=== PATIENT | male | born 1995 | race Caucasian/White ===

== ENCOUNTER 2021-11-15 13:52 | Emergency (ER) | payer BC ==
[2021-11-15 14:55] LABS: Absolute Lymphocytes (CBC) 1.7 K/uL (0.7-4.9); Hematocrit 42.5 % (39.6-49.0); Lymphocytes % 18.5 % (15.3-44.8); MCV 79.4 fL (80-100); MPV 6.9 fL (7.6-11.3); RBC Red Blood Cell Count 5.36 M/uL (4.33-5.43)
[2021-11-15 15:07] LABS: Potassium 3.5 mmol/L (3.5-5.1)
--- NOTE | 2021-11-15 15:18 | RAD REPORT ---
EXAM DESCRIPTION: US - Extrem Venous W Compress Emeterio - 11/15/2021 2:55 pm CLINICAL HISTORY: SWELLINGin both legs COMPARISON: None. TECHNIQUE: Real-time sonographic evaluation of the bilateral lower extremity common femoral, superfi cial femoral, popliteal and posterior tibial veins was performed. FINDINGS: Normal compressibility, flow augmentation, phasic flow and spontaneous flow are identified in the left and right lower extremity common femoral, superficial femoral, popliteal and posterior t ibial veins. No intraluminal filling defects seen. IMPRESSION: No DVT in either lower extremity.
--- NOTE | 2021-11-15 15:37 | EDPHYS ---
Physician Documentation [facility] Name: Burke Dolan Age: 26 yrs Sex: Male : 1995 Arrival Date: 11/15/2021 Time: 13:53 Bed 13 Private MD: ED Physician Yrn Pickens HPI: 11/15 20:32 This 26 yrs old Male presents to ER via Ambulatory with complaints of Ankle Swelling. kb 23:29 The patient presents with a rash, swelling. The complaints affect the left foot, right kb foot. Context: the patient can fully bear weight, the patient is able to ambulate. Onset: The symptoms/episode began/occurred 2 week(s) ago, and became worse yesterday. Modifying factors: The symptoms are alleviated by nothing, the symptoms are aggravated by nothing. Associated signs and symptoms: Pertinent positives: rash, swelling, Pertinent negatives: calf tenderness, fever, nausea, numbness, tingling, vomiting, warmth, weakness. Severity of symptoms: At their worst the symptoms were moderate, in the emergency department the symptoms are unchanged. The patient has not experienced similar symptoms in the past. The patient has not recently seen a physician. Pt reports crusty rash that started 2 weeks ago to hands and feet. States the hands cleared up, but it persists on both feet. Yesterday feet began to swell with redness. Denies fever. States he wears boots at work for 12 hours a day. Historical: - Allergies: 14:02 PENICILLINS; hb - Immunization history:: Adult Immunizations up to date. - Social history:: Smoking status: Patient denies any tobacco usage or history of. ROS: 20:32 Constitutional: Negative for fever, chills, and weight loss. kb 23:31 Skin: Positive for erythema, rash, swelling, of the left foot and right foot. kb 23:31 All other systems are negative. Exam: 23:31 Constitutional: This is a well developed, well nourished patient who is awake, alert, kb and in no acute distress. Head/Face: Normocephalic, atraumatic. ENT: Moist Mucous membranes Cardiovascular: Regular rate and rhythm with a normal S1 and S2. No gallops, murmurs, or rubs. No pulse deficits. Respiratory: Respirations even and unlabored. No increased work of breathing. Talking in full sentences MS/ Extremity: Pulses equal, no cyanosis. Neurovascular intact. Full, normal range of motion. Neuro: Awake and alert, GCS 15, oriented to person, place, time, and situation. Moves all extremities. Normal gait. Psych: Awake, alert, with orientation to person, place and time. Behavior, mood, and affect are within normal limits. 23:31 Skin: cellulitis, that is mild, on the right foot and left foot, rash a moderate rash is noted, consistent with tinea pedis, on the left foot and right foot. Vital Signs: 13:59 BP 140 / 103; Pulse 86; Resp 18; Temp 98.5(O); Pulse Ox 99% on R/A; Pain 3/10; hb 15:00 BP 130 / 74; Pulse 75; Resp 16; Pulse Ox 100% ; bp 16:15 BP 101 / 72; Pulse 89; Resp 16; Pulse Ox 100% ; bp MDM: 13:59 Patient medically screened. kb 20:32 Data reviewed: vital signs, nurses notes. Data interpreted: Pulse oximetry: on room air kb is 100 %. Interpretation: normal. Counseling: I had a detailed discussion with the patient and/or guardian regarding: the historical points, exam findings, and any diagnostic results supporting the discharge/admit diagnosis, lab results, radiology results, the need for outpatient follow up, a family practitioner, to return to the emergency department if symptoms worsen or persist or if there are any questions or concerns that arise at home. 11/15 14:02 Order name: CBC with Diff; Complete Time: 15:00 kb 11/15 14:03 Order name: Basic Metabolic Panel; Complete Time: 15:10 kb 11/15 14:03 Order name: US Extremity Venous W Compression Emeterio; Complete Time: 15:20 kb 11/15 14:03 Order name: Blood Culture Adult (2) kb 11/15 14:03 Order name: Lactate; Complete Time: 15:14 kb 11/15 14:03 Order name: IV Start; Complete Time: 14:30 kb Administered Medications: 16:00 Drug: Bactrim (trimethoprim-sulfamethoxazole) (160 mg-800 mg (DS) 1 tablet Route: PO; bp 16:31 Follow up: Response: No adverse reaction bp Disposition Summary: 11/15/21 15:37 Discharge Ordered Location: Home kb Condition: Stable kb Diagnosis - Cellulitis of left lower limb kb - Cellulitis of right lower limb kb - Tinea pedis kb Followup: kb - With: Emergency Department - When: As needed - Reason: Worsening of condition Followup: kb - With: Private Physician - When: 2 - 3 days - Reason: Recheck today's complaints, Continuance of care, Re-evaluation by your physician Discharge Instructions: - Discharge Summary Sheet kb - Athlete's Foot kb - Cellulitis, Adult, [id number] kb Forms: - Medication Reconciliation Form kb - Thank You Letter kb - Antibiotic Education kb - Prescription Opioid Use kb Prescriptions: - Bactrim DS 800-160 mg Oral Tablet - take 1 tablet by ORAL route every 12 hours for 10 days; 20 tablet; Refills: 0, kb Product Selection Permitted Addendum: 11/17/2021 03:43 Co-signature as Attending Physician, Yrn Pickens DO I was immediately available onsite m s3 in the emergency department for consultation in the care of the patient. Signatures: Dispatcher [employer] Alize Cobian, PERSONAL FITNESS TRAINER-C PERSONAL FITNESS TRAINER-Veronica Nelson, RN RN Vasquez Babcock, RN RN Yrn Zimmerman DO DO ms3
--- NOTE | 2021-11-15 15:37 | ER ---
Nurse's Notes [facility] Name: Burke Dolan Age: 26 yrs Sex: Male : 1995 Arrival Date: 11/15/2021 Time: 13:53 Bed 13 Private MD: Diagnosis: Cellulitis of left lower limb;Cellulitis of right lower limb;Tinea pedis Presentation: 11/15 13:59 Chief complaint: Bilateral ankle and foot swelling since last night, itchy rash on feet hb x 2 weeks. Coronavirus screen: At this time, the client does not indicate any symptoms associated with coronavirus-19. Ebola Screen: No symptoms or risks identified at this time. Initial Sepsis Screen: Does the patient meet any 2 criteria? No. Patient's initial sepsis screen is negative. Does the patient have a suspected source of infection? No. Patient's initial sepsis screen is negative. Risk Assessment: Do you want to hurt yourself or someone else? Patient reports no desire to harm self or others. Onset of symptoms was October 2021. 13:59 Method Of Arrival: Ambulatory hb 13:59 Acuity: RED 3 hb Triage Assessment: 14:00 General: Appears distressed, uncomfortable, Behavior is calm, cooperative, appropriate bp for age. Pain: Complains of pain in right foot and left foot. EENT: No deficits noted. Neuro: No deficits noted. Cardiovascular: No deficits noted. Respiratory: No deficits noted. GI: No signs and/or symptoms were reported involving the gastrointestinal system. : No signs and/or symptoms were reported regarding the genitourinary system. Derm: Rash noted that is itchy. Musculoskeletal: Swelling present in right foot and left foot. Historical: - Allergies: 14:02 PENICILLINS; hb - Immunization history:: Adult Immunizations up to date. - Social history:: Smoking status: Patient denies any tobacco usage or history of. Screenin:15 Abuse screen: Denies threats or abuse. Denies injuries from another. Nutritional bp screening: No deficits noted. Tuberculosis screening: No symptoms or risk factors identified. Fall Risk None identified. Assessment: 14:00 General: SEE TRIAGE NOTE. bp 16:15 Reassessment: PT D/C HOME AMBULATORY. bp Vital Signs: 13:59 BP 140 / 103; Pulse 86; Resp 18; Temp 98.5(O); Pulse Ox 99% on R/A; Pain 3/10; hb 15:00 BP 130 / 74; Pulse 75; Resp 16; Pulse Ox 100% ; bp 16:15 BP 101 / 72; Pulse 89; Resp 16; Pulse Ox 100% ; bp ED Course: 13:53 Patient arrived in ED. am2 13:59 Alize Osman FNP-C is [facility]. kb 13:59 Yrn Pickens DO is Attending Physician. kb 13:59 Arm band placed on. hb 14:01 Triage completed. hb 14:05 Vasquez Whitt, RN is Primary Nurse. bp 14:30 Inserted saline lock: 20 gauge in right antecubital area, using aseptic technique. bp Blood collected. 14:56 US Extremity Venous W Compression Emeterio In Process Unspecified. EDMS 16:15 Patient has correct armband on for positive identification. Bed in low position. Call bp light in reach. Side rails up X2. 16:15 No provider procedures requiring assistance completed. IV discontinued, intact, bp bleeding controlled, No redness/swelling at site. Pressure dressing applied. Administered Medications: 16:00 Drug: Bactrim (trimethoprim-sulfamethoxazole) (160 mg-800 mg (DS) 1 tablet Route: PO; bp 16:31 Follow up: Response: No adverse reaction bp Medication: 16:15 VIS not applicable for this client. bp Outcome: 15:37 Discharge ordered by MD. kb 16:15 Discharged to home ambulatory. bp 16:15 Condition: stable 16:15 Discharge instructions given to patient, Instructed on discharge instructions, follow up and referral plans. medication usage, Demonstrated understanding of instructions, follow-up care, medications, Prescriptions given X 1. 16:31 Patient left the ED. bp Signatures: Dispatcher [employer] EDNY Alize Osman FNP-C FNP-Ckb Baxter, Heather RN RN Emerald Patel am2 Vasquez Whitt, RN RN bp
[2021-11-15] MEDS ORDERED: SMZ./TMP. 800/160 MG TABLET ONE (16:11)
[2021-11-17 02:37] VITALS: O2SAT 100
[2021-11-17 02:59] VITALS: BP 101/72
== END 2021-11-15 16:31 | disposition home or self-care (01) ==
LOC: ER 13:52
DX: L03.116 Cellulitis of left lower limb (principal); L03.115 Cellulitis of right lower limb; B35.3 Tinea pedis
CPT/HCPCS: 36415; 80048; 83605; 85025; 87040; 93970; 99284

== ENCOUNTER 2023-07-12 22:28 | Emergency (ER) | payer BC ==
--- NOTE | 2023-07-12 22:40 | EDPHYS ---
Physician Documentation [facility] Name: Burke Dolan Age: 28 yrs Sex: Male : 1995 Arrival Date: 07/12/2023 Time: 22:28 Bed IW1 Private MD: ED Physician Souleymane Henderson HPI: 07/11 22:38 This 28 yrs old Male presents to ER via Unassigned with complaints of Ear Pain. kb 22:38 Pt is a 28 year old male who presents for left ear pain that started this morning. kb Denies fever, drainage. . Historical: - Allergies: 22:43 PENICILLINS; jj7 - PMHx: 22:43 None; jj7 - PSHx: 22:43 None; jj7 - Immunization history:: Adult Immunizations up to date, Client reports having NOT received the Covid vaccine. Flu vaccine is not up to date. - Infectious Disease History:: Denies. - Social history:: Smoking status: Patient denies any tobacco usage or history of. Patient/guardian denies using alcohol, street drugs, IV drugs. ROS: 22:38 Constitutional: As per HPI kb Exam: 22:38 Constitutional: This is a well developed, well nourished patient who is awake, alert, kb and in no acute distress. Head/Face: Normocephalic, atraumatic. Cardiovascular: Regular rate Respiratory: Respirations even and unlabored. No increased work of breathing. Talking in full sentences Skin: Warm, dry with normal turgor. Normal color. MS/ Extremity: Pulses equal, no cyanosis. Neurovascular intact. Full, normal range of motion. Neuro: Awake and alert, GCS 15, oriented to person, place, time, and situation. Moves all extremities. Normal gait. 22:38 ENT: External ear(s): are unremarkable, Ear canal(s): purulent discharge, that is minimal, in the left canal, swelling, that is moderate, of the left canal, TM's: bulging, on the left, erythema, that is marked, on the left, Vital Signs: 22:41 BP 146 / 92; Pulse 97; Resp 19; Temp 98.9; Pulse Ox 97% ; Weight 129.27 kg; Height 5 jj7 ft. 10 in. ; Pain 8/10; 22:41 Body Mass Index 40.89 (129.27 kg, 177.8 cm) jj7 22:41 Pain Scale: Adult jj7 MDM: 22:34 Patient medically screened. kb 22:39 Differential diagnosis: otitis media, otitis externa, ruptured TM, foreign body, acute kb otalgia. Data reviewed: vital signs, nurses notes. Counseling: I had a detailed discussion with the patient and/or guardian regarding the historical points, exam findings, and any diagnostic results supporting the discharge/admit diagnosis, the need for outpatient follow up, a family practitioner, to return to the emergency department if symptoms worsen or persist or if there are any questions or concerns that arise at home. Administered Medications: No medications were administered Disposition: 07/12 01:11 Co-signature as Attending Physician, Souleymane Henderson MD I agree with the assessment sp4 and plan of care. I reviewed the patient's care provided by the Advanced Practice Provider and agree with the diagnosis and treatment plan. Disposition Summary: 07/12/23 22:39 Discharge Ordered Notes: Location: Home kb Condition: Stable kb Diagnosis - Unspecified otitis externa, left ear kb - Otitis media, unspecified, left ear kb Followup: kb - With: Emergency Department - When: As needed - Reason: Worsening of condition Followup: kb - With: Private Physician - When: 2 - 3 days - Reason: Recheck today's complaints, Continuance of care, Re-evaluation by your physician Discharge Instructions: - Discharge Summary Sheet kb - Otitis Externa, [id number] kb - Otitis Media, Adult, [id number] kb - Ear Drops, Adult, [id number] kb Forms: - Medication Reconciliation Form kb - Antibiotic Education kb - Prescription Opioid Use kb - Patient Portal Instructions kb - Leadership Thank You Letter kb Prescriptions: - Zithromax Z-Cuong 250 mg Oral Tablet - take 1 tablet ORAL route as directed for 5 days Day 1 - take two (2) tablets kb one time. Day 2, 3, 4 , 5 take one (1) tablet once daily.; 6 tablet; Refills: 0, Product Selection Permitted - Ciprodex 0.3-0.1 % Otic drops, suspension - instill 4 drops OTIC route every 12 hours for 7 days , for ears ONLY; 1 unit; kb Refills: 0, Product Selection Permitted Signatures: Alize Osman REMARKETING MANAGER-C REMARKETING MANAGER-CkHammad Neely, RN RN jj7 Souleymane Henderson MD MD sp4
--- NOTE | 2023-07-12 22:51 | ER ---
Nurse's Notes [facility] Name: Burke Dolan Age: 28 yrs Sex: Male : 1995 Arrival Date: 07/12/2023 Time: 22:28 Bed IW1 Private MD: Diagnosis: Unspecified otitis externa, left ear;Otitis media, unspecified, left ear Presentation: 07/11 22:41 Chief complaint: Patient states: LEFT EAR PAIN STARTED TODAY. Coronavirus screen: At [facility] this time, the client does not indicate any symptoms associated with coronavirus-19. Ebola Screen: No symptoms or risks identified at this time. Initial Sepsis Screen: Does the patient meet any 2 criteria? No. Patient's initial sepsis screen is negative. Does the patient have a suspected source of infection? No. Patient's initial sepsis screen is negative. Risk Assessment: Do you want to hurt yourself or someone else? Patient reports no desire to harm self or others. Onset of symptoms was July 12, 2023. 22:41 Method Of Arrival: Ambulatory [facility] 22:41 Acuity: RED 5 [facility] 22:41 Note TYLENOL. jj7 Triage Assessment: 22:43 General: Appears in no apparent distress. comfortable, Behavior is calm, cooperative, jj appropriate for age. Pain: Complains of pain in left ear. EENT: Reports pain in left ear. Historical: - Allergies: 22:43 PENICILLINS; jj7 - PMHx: 22:43 None; jj7 - PSHx: 22:43 None; jj7 - Immunization history:: Adult Immunizations up to date, Client reports having NOT received the Covid vaccine. Flu vaccine is not up to date. - Infectious Disease History:: Denies. - Social history:: Smoking status: Patient denies any tobacco usage or history of. Patient/guardian denies using alcohol, street drugs, IV drugs. Screenin:44 [facility] ED Fall Risk Assessment (Adult) History of falling in the last 3 months, [facility] including since admission No falls in past 3 months (0 pts) Confusion or Disorientation No (0 pts) Intoxicated or Sedated No (0 pts) Impaired Gait No (0 pts) Mobility Assist Device Used No (0 pt) Altered Elimination No (0 pt) Score/Fall Risk Level 0 - 2 = Low Risk Oriented to surroundings, Maintained a safe environment, Educated pt \T\ family on fall prevention, incl call for assistance when getting out of bed. Abuse screen: Denies threats or abuse. Nutritional screening: No deficits noted. Tuberculosis screening: No symptoms or risk factors identified. Assessment: 22:44 Reassessment: SEE TRIAGE ASSESSMENT. jj7 Vital Signs: 22:41 BP 146 / 92; Pulse 97; Resp 19; Temp 98.9; Pulse Ox 97% ; Weight 129.27 kg; Height 5 jj7 ft. 10 in. ; Pain 8/10; 22:41 Body Mass Index 40.89 (129.27 kg, 177.8 cm) jj7 22:41 Pain Scale: Adult j7 ED Course: 22:32 Patient arrived in ED. mg5 22:34 [facility]man [facility]-C [facility]. kb 22:34 Souleymane Henderson MD is Attending Physician. kb 22:43 Triage completed. jj7 22:43 Arm band placed on right wrist. jj7 22:44 Patient has correct armband on for positive identification. Provided Education on: jj7 ANTIBIOTIC USE. 22:44 No provider procedures requiring assistance completed. Patient did not have IV access jj7 during this emergency room visit. Administered Medications: No medications were administered Medication: 22:44 VIS not applicable for this client. jj7 Outcome: 22:39 Discharge ordered by . kb 22:49 Discharged to home ambulatory, jj7 22:49 Condition: stable 22:49 Discharge instructions given to patient, Instructed on discharge instructions, follow up and referral plans. medication usage, Demonstrated understanding of instructions, follow-up care, medications, Prescriptions given X 2, 22:50 Patient left the ED. jj7 Signatures: Alize Osman FNP-C FNP-Ckb Johnson, Juwairiyah, RN RN jj7 Allison Person mg5
[2023-07-12 23:20] VITALS: BP 146/92; TEMP 98.9; O2SAT 97
== END 2023-07-12 22:50 | disposition home or self-care (01) ==
LOC: ER 22:28
DX: H60.92 Unspecified otitis externa, left ear (principal); H66.92 Otitis media, unspecified, left ear; Z88.0 Allergy status to penicillin
CPT/HCPCS: 99283